=== PATIENT | female | born 1940 | race Caucasian/White ===

== ENCOUNTER → 2016-09-05 | Outpatient (CLI) | payer MEDICARE, BC, OTHER ==
[2016-09-07 14:14] LABS: Lyme Disease IgG/IgM Antibodie <0.91 ISR (0.00-0.90); Lyme Disease IgM Ab Quantitati <0.80 index (0.00-0.79)
== END ==
LOC: M WUC 08:51
PROVIDERS: ATTEND Family Medicine
DX: L30.9 Dermatitis, unspecified (principal)

== ENCOUNTER → 2017-11-05 | Outpatient (CLI) | payer MEDICARE, BC, OTHER | LOC: M WUC 15:13 | DX: M19.071 Primary osteoarthritis, right ankle and foot (principal) | CPT/HCPCS: 73630 ==

== ENCOUNTER → 2019-01-02 | Outpatient (CLI) | payer MEDICARE, BC, OTHER ==
--- NOTE | 2019-01-02 10:48 | REP ---
Clinical: Pain. Technique: Single AP view of the pelvis. Findings: Age-related osteopenia and degenerative changes are appreciated. Evidence of prior left hip replacement. No acute fracture or dislocation. Impression: Osteopenia and degenerative changes. No acute fracture or dislocation. Electronically Signed by Dandre Newman MD 01/02/2019 10:40 A
--- NOTE | 2019-01-02 10:55 | REP ---
Clinical: Left hip pain. Technique: Neutral and frog lateral views of the left hip. Findings: Evidence for prior arthroplasty in stable position and appearance. Osseous structures are intact. No acute fracture dislocation. No overt progressive arthritic degenerative changes. Impression: Normal left hip replacement. No obvious acute process. Electronically Signed by Dandre Newman MD 01/02/2019 10:47 A
== END ==
LOC: M WUC 10:13
PROVIDERS: ATTEND Physician Assistant
DX: M25.552 Pain in left hip (principal)

== ENCOUNTER → 2019-04-25 | Outpatient (REF) | payer MEDICARE, OTHER | LOC: M LABDRAW1 11:44 | PROVIDERS: ATTEND Orthopaedic Surgery | DX: M70.62 Trochanteric bursitis, left hip (principal) ==

== ENCOUNTER 2019-05-26 17:00 | Emergency (ER) | payer MEDICARE, OTHER ==
[~2019-05-26] VITALS: Ht 154.9 cm; Wt 71.3 kg
[2019-05-26] MEDS ORDERED: REST0.05 OP (17:07)
[2019-05-26] MEDS ORDERED: ALBU8.5H (17:07)
[2019-05-26] MEDS ORDERED: ALBUTEROL SULFATE 2.5 MG/0.5 ML INH NEB SOLN INH ONE (18:15)
[2019-05-26] MEDS ORDERED: IPRATROPIUM 0.5MG/ALBUTEROL 2.5MG INH SOL UD 3ML (DUONEB)(J7620) NEB ONE (18:15)
[2019-05-26] MEDS ORDERED: ISOVUE-370 76% 100ML VIAL (Q9967) As Ordered ONE (18:21)
[2019-05-26] MEDS ORDERED: methylPREDNISolone INJ 125 MG/2 ML VIAL (J2930) IV ONE (18:30)
--- NOTE | 2019-05-26 19:22 | REPVR ---
PROCEDURE INFORMATION: Exam: CT Angiography Chest With Contrast Exam date and time: 05/26/2019 6:23 PM Age: 78 years old Clinical indication: Shortness of breath; Additional info: SOB, RO pe, eelv d dimer, left thigh pain TECHNIQUE: Imaging protocol: Computed tomographic angiography of the chest with intravenous contrast. 3D rendering: MIP and/or 3D reconstructed images were created by the technologist. Radiation optimization: All CT scans at this facility use at least one of these dose optimization techniques: automated exposure control; mA and/or kV adjustment per patient size (includes targeted exams where dose is matched to clinical indication); or iterative reconstruction. Contrast material: ISOVUE 370; Contrast volume: 75 ml; Contrast route: IV; COMPARISON: CT Chest with contrast 04/13/2016 2:16 PM FINDINGS: Pulmonary arteries: No focal pulmonary artery filling defect to suggest acute pulmonary embolus. Aorta: Thoracic aorta is tortuous without focal aneurysm or dissection. Lungs: Pseudo-filling defect appearance involving a right middle lobe branch on axial image [id number] is demonstrated on both coronal and sagittal images to simply represent volume averaging artifact and not an intraluminal defect. Pulmonary vascular/interstitial pattern does not suggest active pulmonary edema. No suspicious lung mass or air space process. No central endobronchial lesion. Calcified postinflammatory nodule/granuloma in the right lung apex, unchanged. Pleural space: No pleural effusion or pneumothorax. Heart: No overt cardiac enlargement or pericardial effusion. Lymph nodes: No enlarged mediastinal lymph nodes. Bones/joints: Bony structures show no acute fracture or destructive process. IMPRESSION: 1. No evidence of acute pulmonary embolus. 2. No other acute or concerning focal intrathoracic abnormality. Electronically signed by: Mark Mijares On 05/26/2019 19:21:45 PM
[2019-05-26 19:23] LABS: CK-MB VALUE MASS < 1.0 NG/ML (<3.6); CPK CREATINE PHOSPHOKINASE 45 U/L (26-192); MB/CK RELATIVE INDEX 2.22 (< OR =4); NT-PRO BNP 237 PG/ML (<450); TROPONIN I < 0.02 NG/ML (< 0.10)
--- NOTE | 2019-05-26 19:23 | REPVR ---
PROCEDURE INFORMATION: Exam: US Duplex Left Lower Extremity Veins, Limited Exam date and time: 05/26/2019 7:07 PM Age: 78 years old Clinical indication: Pain; Leg, lower; Left; Additional info: Left thigh pain RO dcvt TECHNIQUE: Imaging protocol: Real-time Duplex ultrasound of the Left Lower Extremity with 2-D rg scale, color Doppler flow and spectral waveform analysis with image documentation. Limited exam focused on the left lower extremity veins. COMPARISON: No relevant prior studies available. FINDINGS: Evaluated venous structures include common femoral vein, femoral vein, popliteal vein Veins appear normally compressible with no intraluminal filling defects. Doppler waveforms and flow directionality are normal. No abnormal focal fluid collections identified. IMPRESSION: No evidence of deep venous thrombosis in the left lower extremity venous system. Electronically signed by: Mark Mijares On 05/26/2019 19:23:11 PM
--- NOTE | 2019-05-26 19:39 | REP ---
Clinical: Left hip pain. Technique: AP view of the pelvis. Findings: Left hip replacement. Osseous structures, joint spaces, and surrounding soft tissues are normal. Impression: Unremarkable pelvic radiograph. Electronically Signed by Dandre Newman MD 05/26/2019 07:30 P
--- NOTE | 2019-05-26 19:40 | REP ---
Clinical: Left hip pain. Technique: AP and frog lateral views of the left hip. Findings: Left hip replacement. No acute fracture or dislocation. Surrounding soft tissues are unremarkable. Impression: No acute process appreciated. Electronically Signed by Dandre Newman MD 05/26/2019 07:31 P
--- NOTE | 2019-05-26 20:11 | ECGEPIP ---
[facility] - ED Test Date: 2019-05-26 Pat Name: SIDNEY RUSS Department: Room: - Gender: Female [employer]: : [id number] Requested By: Serafin Schafer Order Number: [id number] Reading MD: Jese Mtz Measurements Intervals [place] Rate: 71 P: 35 VA: 157 QRS: -25 QRSD: 90 T: 16 QT: 392 QTc: 428 Interpretive Statements SINUS RHYTHM BORDERLINE LEFT AXIS DEVIATION POOR R WAVE PROGRESSION NO PRIORS FOR COMPARISON Electronically Signed on 05-26-2019 20:11:46 EST by Jese Mtz
[2019-05-26 20:15] VITALS: BP 149/71
[2019-05-26] MEDS ORDERED: PRED20TA PO (20:19)
== END 2019-05-26 20:31 | disposition home or self-care (01) ==
LOC: M ED 17:00
DX: R91.8 Other nonspecific abnormal finding of lung field (principal); R06.09 Other forms of dyspnea; J45.909 Unspecified asthma, uncomplicated; M85.9 Disorder of bone density and structure, unspecified; Z79.899 Other long term (current) drug therapy; Z88.1 Allergy status to other antibiotic agents; Z88.2 Allergy status to sulfonamides; Z88.8 Allergy status to other drugs, medicaments and biological substances
CPT/HCPCS: 36415; 71046; 71275; 72170; 73502; 80053; 82550; 82553; 83880; 84484; 85025; 85379; 93005; 93971; 96374; 99284; J2930; Q9967

== ENCOUNTER → 2019-05-26 | Outpatient (CLI) | payer MEDICARE, OTHER ==
[~2019-05-26] MED LIST: ALBU8.5H; PRED20TA PO; REST0.05 OP
--- NOTE | 2019-05-26 14:00 | REP ---
CHEST TWO VIEWS: Two views of the chest are performed and compared to a prior study of 04/13/2016. Once again there is a stable small nodular opacity in the right upper lobe, which on CT 04/13/2016 corresponded to a calcified granuloma. No new lung opacity is seen. There is no acute infiltrate. The heart is upper limits of normal in size. There is mild calcification and tortuosity of the thoracic aorta. The mediastinal silhouette is unchanged. There are degenerative changes of the spine. IMPRESSION: Stable chronic changes. No acute pulmonary disease. Electronically Signed by Tl Stock MD 05/26/2019 02:52 P
[2019-05-26 14:48] LABS: BASO # 0.1 10^3/uL (0.0-0.2); BASO % 0.7 % (0.0-1.0); EOS # 0.2 10^3/uL (0.0-0.5); EOS % 2.6 % (0.0-3.0); HEMATOCRIT 44.5 % (36.0-47.0); HEMOGLOBIN 14.4 g/dl (12.0-15.5); LYMPH # 2.2 10^3/uL (1.5-5.0); MEAN CORPUSCULAR HEMOGLOBIN 29.5 pg (27.0-33.0); MEAN CORPUSCULAR HGB CONC 32.4 g/dl (32.0-36.5); MEAN CORPUSCULAR VOLUME 91.2 fl (80.0-96.0); MONO # 0.6 10^3/uL (0.0-0.8); MONO % 7.6 % (0.0-5.0); NEUTROPHILS # 4.4 10^3/uL (1.5-8.5); NEUTROPHILS % 58.8 % (36.0-66.0); PLATELET COUNT, AUTOMATED 251 10^3/uL (150-450); RED BLOOD COUNT 4.88 10^6/uL (4.00-5.40); WHITE BLOOD COUNT 7.4 10^3/uL (4.0-10.0)
[2019-05-26 15:18] LABS: ALBUMIN 3.6 GM/DL (3.2-5.2); ALT/SGPT 16 U/L (12-78); BILIRUBIN,TOTAL 0.6 MG/DL (0.2-1.0); BLOOD UREA NITROGEN 13 MG/DL (7-18); CARBON DIOXIDE LEVEL 26 MEQ/L (21-32); CHLORIDE LEVEL 103 MEQ/L (98-107); CREATININE FOR GFR 0.66 MG/DL (0.55-1.30); GLOMERULAR FILTRATION RATE > 60.0 (>39); GLUCOSE, FASTING 85 MG/DL (70-100); NT-PRO BNP 252 PG/ML (<450); POTASSIUM SERUM 3.9 MEQ/L (3.5-5.1); SODIUM LEVEL 141 MEQ/L (136-145); TOTAL PROTEIN 7.1 GM/DL (6.4-8.2)
== END ==
LOC: M WUC 12:40
PROVIDERS: ATTEND Physician Assistant
DX: R91.8 Other nonspecific abnormal finding of lung field (principal); R06.02 Shortness of breath

== ENCOUNTER → 2019-07-21 | Outpatient (CLI) | payer MEDICARE, BC ==
--- NOTE | 2019-07-22 13:18 | DEXA ---
AP SPINE L1 - L4 1.239 0.4 2.2 LT FEMUR TOTAL Left hip replacement. LT NECK Left hip replacement. RT FEMUR TOTAL 0.791 -1.7 0.2 RT NECK 0.707 -2.4 -0.3 TOTAL BODY TOTAL OTHER COMMENTS: Normal bone densitometry of the spine. There is low bone density of the right hip. Scoliosis. FOLLOW-UP: Recommendation for the next bone density exam: 2 years. ALEJANDRA
== END ==
LOC: M WHC 09:28
PROVIDERS: ATTEND Orthopaedic Surgery
DX: M70.62 Trochanteric bursitis, left hip (principal); M81.0 Age-related osteoporosis without current pathological fracture

== ENCOUNTER → 2020-07-20 | Outpatient (REF) | payer MEDICARE, OTHER | LOC: M LAB REF 16:16 | PROVIDERS: ATTEND Internal Medicine | DX: R41.3 Other amnesia (principal) ==

== ENCOUNTER → 2020-09-14 | Outpatient (CLI) | payer MEDICARE, BC, OTHER ==
--- NOTE | 2020-09-14 12:46 | REP ---
INDICATION: COUGH. COMPARISON: 05/26/2019 and 04/13/2016 TECHNIQUE: Noncontrast enhanced standard helical CT FINDINGS: No mediastinal or hilar adenopathy has developed on this limited noncontrast enhanced exam. Once again, note is made of an aberrant right subclavian artery. The ascending thoracic aorta is essentially unchanged although seen in a limited fashion and measures approximately 4 cm in its AP dimension. There are no pleural or pericardial effusions. The imaged upper abdomen is within normal limits. The imaged osseous structures are within normal limits for the patient's age. Evaluation of the lung hastings shows scattered asymmetric and curvilinear densities consistent with varying degrees of fibrotic change and appearing stable. There is an unchanged asymmetric right upper lobe calcified granuloma. There is bronchiectasis of the mild verrucoid form. No new abnormal nodules, masses, or opacities have developed. IMPRESSION: Stable appearing chronic changes as described above. <Electronically signed by Arcadio Julien > 09/14/20 [id number]
== END ==
LOC: M RAD 11:03
PROVIDERS: ATTEND Nurse Practitioner Adult Health
DX: R05 Cough (principal)

== ENCOUNTER → 2021-12-09 | Outpatient (CLI) | payer MEDICARE, BC, OTHER | LOC: M WUC 08:09 | PROVIDERS: ATTEND Internal Medicine | DX: M54.50 Low back pain, unspecified (principal); M25.561 Pain in right knee ==

== ENCOUNTER → 2022-05-25 | Outpatient (CLI) | payer MEDICARE, BC, OTHER | LOC: M PLAIMG 10:12 | PROVIDERS: ATTEND Internal Medicine | DX: R91.8 Other nonspecific abnormal finding of lung field (principal); R06.00 Dyspnea, unspecified ==

== ENCOUNTER → 2022-07-11 | Outpatient (CLI) | payer MEDICARE, BC, OTHER | LOC: M PLAIMG 08:45 | PROVIDERS: ATTEND Internal Medicine | DX: J84.9 Interstitial pulmonary disease, unspecified (principal); R05.9 Cough, unspecified ==

== ENCOUNTER → 2022-10-24 | Outpatient (CLI) | payer MEDICARE, BC, OTHER ==
[2022-10-24 14:54] LABS: C REACTIVE PROTEIN QUANTITATIV < 0.40 MG/DL (<1.0)
[2022-10-24 14:55] LABS: RHEUMATOID FACTOR QUANT 5.8 IU/ML (<14)
[2022-11-03 14:10] LABS: ANCA-ATYPICAL <1:20 titer (Neg:<1:20); ANTI DOUBLE STRAND-DNA AB <1 IU/mL (0-9); ANTI DS-DNA AB Negative (Negative); ANTI SCLERODERMA ANTIBODIES 0.6 AI (0.0-0.9); ANTINUCLEAR ANTIBODIES DIRECT Positive (Negative); ASPERGILLUS FUMIGATUS AB Negative (Negative); AUREOBASIDIUM PULLULANS Negative (Negative); CYCLIC CITRULLINATED PEPTIDE 16 units (0-19); CYTOPLASMIC NEUTROP AB ANCA-C <1:20 titer (Neg:<1:20); MICROPOLYSPORA FAENI AB Negative (Negative); PERINUCLEAR AB ANCA-P <1:20 titer (Neg:<1:20); PIGEON SERUM AB Negative (Negative); RNP ANTIBODIES 0.2 AI (0.0-0.9); SJOGREN'S ANTI SS-A >8.0 AI (0.0-0.9); SJOGREN'S ANTI SS-B <0.2 AI (0.0-0.9); SMITH ANTIBODIES <0.2 AI (0.0-0.9); THERMOACTINOMYCES SACCHARI Negative (Negative); THERMOACTINOMYCES VULGARIS Negative (Negative)
== END ==
LOC: M LAB 13:30
PROVIDERS: ATTEND Internal Medicine Pulmonary Disease
DX: J84.9 Interstitial pulmonary disease, unspecified (principal)

== ENCOUNTER → 2022-11-02 | Outpatient (CLI) | payer MEDICARE, BC, OTHER | LOC: M PLAIMG 12:25 | PROVIDERS: ATTEND Internal Medicine Pulmonary Disease | DX: R91.8 Other nonspecific abnormal finding of lung field (principal) ==